=== PATIENT | female | born 1985 | race Caucasian/White ===

== ENCOUNTER 2017-06-30 04:55 | Inpatient (IN) | payer OTHER ==
[2017-06-30] MEDS ORDERED: cefOXitin Sodium 1 GM in Sodium Chloride 0.9% 100 ML IVPB ONE (05:46)
[2017-06-30 05:47] VITALS: BMI 32.9
[2017-06-30] MEDS: Lactated Ringer's 1,000 ML IV SCH ×2 (06:00→07:25)
[2017-06-30 06:53] LABS: BASO % 0.2 % (0.0-2.0); EOS # 0.1 K/uL (0.0-0.7); EOS % 0.6 % (0.0-4.0); HEMATOCRIT 34.7 % (34.0-47.0); LYMPH # 1.8 K/uL (1.0-4.3); LYMPH % 20.1 % (20.0-40.0); MEAN CELL VOLUME 92.9 fl (81.0-99.0); MEAN CORPUSCULAR HEMOGLOBIN 31.5 pg (27.0-31.0); MEAN CORPUSCULAR HGB CONC 33.9 g/dL (33.0-37.0); MEAN PLATELET VOLUME 8.5 fl (7.2-11.7); MONO # 0.8 K/uL (0.0-0.8); MONO % 8.8 % (0.0-10.0); NEUT # 6.2 K/uL (1.8-7.0); NEUT % 70.3 % (50.0-75.0); RED CELL DISTRIBUTION WIDTH 16.4 % (11.5-14.5); WHITE BLOOD COUNT 8.8 K/uL (4.8-10.8)
[2017-06-30] MEDS ORDERED: ePHEDrine 50 mg/ml Inj ONE (07:08)
[2017-06-30] MEDS ORDERED: Morphine 1 mg/ml preservative-free Inj(Duramorph) ONE (07:09)
[2017-06-30] MEDS ORDERED: Oxytocin 30 UNITS in Sodium Chloride 0.9% 500 ML IV ONE (07:30)
--- NOTE | 2017-06-30 07:55 | OBADHP ---
Datetime: 06/30/2017 07:50 IP Chief Complaint Other: previous uterine surgery IP Adm Impression Other: previous uterine surgery Admit Comment, IP Provider: GBS neg Will admit and prepare for C/S Extremities - PN: Normal Abdomen - PN: Abnormal Breast - PN: Normal Lungs - PN: Normal Heart - PN: Normal Thyroid - PN: Normal Neurologic - PN: Normal HEENT - PN: Normal General - PN: Normal FHR - Baseline A Provider: 140 Membranes, Provider: Ruptured Contraction Comments Provider: q 5 min Comments, ACOG Physical Exam: Abd gravid NT fundus at term; Ext no calf tenderness Gestation - Est Wks by US: 39.0 IP Hx Assessment: The History has been Reviewed and is Current IP Chief Complaint: Uterine contractions; Other NICHD Variability Prov Fetus A: Moderate 6-25bpm NICHD Accel Fetus A IP Provider: 10X10 NICHD Decel Fetus A IP Provider: None Dilatation, Provider: 1cm Effacement, Provider: 50% Genitourinary Exam: Normal DTRs - PN: Normal EGA AdmitDate IP: 39.3 IP Adm Impression: Term, intrauterine ; Active labor IP Admit Plan: Admit to unit; Initiate Section protocol Datetime: 06/30/2017 05:44 Pelvic Type - PN: Adequate Back - PN: Not Done Vital Signs Provider: Reviewed; Within Normal Limits FHR Category Provider Fetus A: Category I
[2017-06-30] MEDS ORDERED: Oxycodone/Acetaminophen 5/325 mg Tab PO PRN ×2 (08:47→10:23)
[2017-06-30] MEDS ORDERED: DiphenhydrAMINE 50 mg/ml Inj IVP PRN ×2 (08:47→12:53)
[2017-06-30] MEDS ORDERED: Oxytocin 30 UNITS in Sodium Chloride 0.9% 500 ML IV SCH (10:30)
[2017-06-30] MEDS ORDERED: cefOXitin IV 1 gm in Dextrose 1 GM/50 ML BAG IVPB SCH (10:30)
--- NOTE | 2017-06-30 10:35 | OBDS ---
DELIVERY PERSONNEL Delivery Doctor: Kolby Ferrera Scrub Nurse: Pilar Jones [facility]BT [employer] [facility] Practitioner: Emely Anesthesiologist: Khushi Overton MD MATERNAL INFORMATION Delivery Anesthesia: Spinal Medications in Delivery: Pitocin Estimated Blood Loss (ml): 850 Placenta Cultured: No Maternal Complications: None Provider Comments: see dictated surgeons note LABOR SUMMARY EDC: 07/04/2017 00:00 No. Babies in Womb: 1 Attempted: No Labor Anesthesia: None LABOR INFORMATION Reason for Induction: Not Applicable Oxytocin: N/A Group B Beta Strep: Negative Antibiotics # of Doses: Mefoxin 1 gram Antibiotics Time of Last Dose: 729 Steroids Given: None Reason Steroids Not Administered: Not Applicable MEMBRANES Membranes Rupture Method: Artificial Rupture of Membranes: 06/30/2017 08:35 Length of Rupture (hrs): 0.02 Amniotic Fluid Color: Bloody Amniotic Fluid Amount: Moderate Amniotic Fluid Odor: Normal STAGES OF LABOR Stage 3 hrs: 0 Stage 3 min: 1 VAGINAL DELIVERY Episiotomy: None Laceration Extension: N/A Laceration Type: None Laceration Repair: Not Applicable CSECTION DELIVERY Primary Indication: Other HX of myomectomy Secondary Indication: labor CSection Urgency: Non Elective CSection Incidence: Primary Labor: Labor Elective: Nonelective CSection Incision: Lower Uterine Transverse Uterine Closure: Double-layer closure BABY A INFORMATION Infant Delivery Date/Time: 06/30/2017 08:36 Method of Delivery: Born in Route : No : N/A Forceps: N/A Vacuum Extraction: N/A Shoulder Dystocia : No SHOULDER DYSTOCIA BABY A Infant Delivery Date/Time: 06/30/2017 08:36 PRESENTATION/POSITION BABY A Presentation: Cephalic Cephalic Presentation: Vertex Breech Presentation: N/A PLACENTA INFORMATION BABY A Placenta Delivery Time : 06/30/2017 08:37 Placenta Method of Delivery: Expressed Placenta Status: Delivered SCORES BABY A Heart Rate 1 min: >100 bpm Resp Effort 1 min: Good Cry Reflex Irritability 1 min: Cough or Sneeze or Pulls Away Muscle Tone 1 min: Active Motion Color 1 min: Body [place], Extremities Blue Resuscitation Effort 1 min: Tactile Stimulation SCORE 1 MIN: 9 Heart Rate 5 min: >100 bpm Resp Effort 5 min: Good Cry Reflex Irritability 5 min: Cough or Sneeze or Pulls Away Muscle Tone 5 min: Active Motion Color 5 min: Body [place], Extremities Blue Resuscitation Effort 5 min: N/A SCORE 5 MIN: 9 INFORMATION BABY A Gestational Age at Delivery: 39.3 Gestational Status: Term Outcome : Liveborn Condition : Stable Infant Sex: Male IDENTIFICATION/MEDS BABY A ID Band Number: [id number] ID Band Location: Left Leg; Left Arm Vitamin K Given : Not Given Erythromycin Given: Not Given WEIGHT/LENGTH BABY A Infant Birthweight (gms): 3570 Weight (lb): 7 Infant Weight (oz): 14 CORD INFORMATION BABY A No. Cord Vessels: 3 Nuchal Cord : Around Neck x1, Loose Nuchal Cord Other: n/a True Knot: n/a Cord pH Baby Arterial: n/a Infant Cord pH Baby Venous: n/a Cord Blood Taken: Yes Banking/Donate Info: n/a Infant Suction: Mouth; Nose ASSESSMENT BABY A Infant Complications: None Physical Findings at Delivery: Within Normal Limits Infant Respirations: Appears Normal Medical Planner/ALS Called : No Care By: Dr Ruiz/Mini Transferred To: [facility]
[2017-06-30] MEDS: cefOXitin IV 1 gm in Dextrose 1 GM/50 ML BAG IVPB SCH (16:40)
[2017-06-30] MEDS ORDERED: Lactated Ringer's 1,000 ML IV SCH (19:15)
[2017-06-30] MEDS: Oxycodone/Acetaminophen 5/325 mg Tab PO PRN (21:29)
[2017-07-01] MEDS: cefOXitin IV 1 gm in Dextrose 1 GM/50 ML BAG IVPB SCH (00:35)
[2017-07-01 06:53] LABS: HEMATOCRIT 32.8 % (34.0-47.0); MEAN CELL VOLUME 93.4 fl (81.0-99.0); MEAN CORPUSCULAR HEMOGLOBIN 31.4 pg (27.0-31.0); MEAN CORPUSCULAR HGB CONC 33.6 g/dL (33.0-37.0); RED CELL DISTRIBUTION WIDTH 15.9 % (11.5-14.5); WHITE BLOOD COUNT 14.5 K/uL (4.8-10.8)
[2017-07-01] MEDS: Oxycodone/Acetaminophen 5/325 mg Tab PO PRN ×3 (07:42→21:19)
--- NOTE | 2017-07-01 08:05 | OBPPN ---
Datetime: 07/01/2017 07:58 PP Pain Prov: Within normal limits PP Pain Prov comment: No SOB, chest pains or leg pains PP Nausea Prov: Denies PP Flatus Prov: Yes PP BM Prov: No PP Nausea Prov comment: voided 2x this am PP Breasts Prov: Normal PP Lungs Prov: Normal PP Abdomen/Uterus Prov: Abnormal PP Lochia Prov: Normal PP Vulva/Perineum Prov: Normal PP CVA Tenderness Prov: Normal PP Extremities Prov: Normal PP C/S Incision Prov: Normal PP Progress Prov: Normal PP Impression Prov: Normal progression PP Plan Prov: Continue present management PP Progress Note Prov: OOB and ambulation, increase diet as tolerated D/C IV after last dose of anti biotic Continue PO care Pending CBC IP PP Procedures: None
[2017-07-01] MEDS ORDERED: cefOXitin Sodium 1 GM in Sodium Chloride 0.9% 100 ML IVPB ONE (08:17)
[2017-07-01] MEDS ORDERED: cefOXitin IV 1 gm in Dextrose 1 GM/50 ML BAG IVPB ONE (09:00)
[2017-07-02] MEDS: Oxycodone/Acetaminophen 5/325 mg Tab PO PRN ×3 (02:12→20:01)
--- NOTE | 2017-07-02 09:32 | OBPPN ---
Datetime: 07/02/2017 09:28 PP Pain Prov: Within normal limits PP Pain Prov comment: No SOB, chest pains or leg pains PP Nausea Prov: Denies PP Flatus Prov: Yes PP BM Prov: No PP Breasts Prov: Normal PP Lungs Prov: Normal PP Abdomen/Uterus Prov: Abnormal PP Lochia Prov: Normal PP Vulva/Perineum Prov: Normal PP CVA Tenderness Prov: Normal PP Extremities Prov: Normal PP C/S Incision Prov: Normal PP Progress Prov: Normal PP Comments Phys Exam Prov: abd soft not distended depressible Fundus firm below the umb Dressing r emoved no active bleeding incision clean and dry, no suppt or discharge Ext no calf tenderness PP Impression Prov: Normal progression PP Plan Prov: Continue present management PP Progress Note Prov: OOB and ambulation Dulcolax suppt this pm if no bm. Continue pp and po care. IP PP Procedures: None Vital Signs Provider PP: Reviewed
--- NOTE | 2017-07-02 12:38 | OP ---
PROCEDURE DATE: 06/30/2017 PREOPERATIVE DIAGNOSES: 1. at term. 2. Previous uterine surgery. 3. Labor. POSTOPERATIVE DIAGNOSES: 1. at term. 2. Nuchal cord x1. 3. Fibroid uterus. PROCEDURE PERFORMED: Primary low transverse segment section. SURGEON: Felix Ferrera MD. MANAGER AUDIT: Balta Wu MD, who was there for the entire duration of the case. Sports Announcer needed in positioning the patient, opening up the abdomen, delivery of the baby, and closure of the abdomen. TYPE OF ANESTHESIA: Spinal. ANESTHESIA ADMINISTERED BY: Juliano Overton MD. ESTIMATED BLOOD LOSS: 850 mL. DRAINS USED: None. REPLACEMENT USED: None. FINDINGS: 1. Delivered living baby boy, baby appears term, baby cried spontaneously. score of 9 and 9. 2. Nuchal cord x1, loose, undone prior to full delivery. 3. Amniotic fluid clear. 4. Placenta complete and intact. 5. Both tubes and ovaries appear grossly within normal limits on inspection bilaterally. 6. Fibroid 2-4 cm in the posterior left side of the uterus and another one 1 m on the anterior frontal aspect. DESCRIPTION OF PROCEDURE: The patient was taken to the operating room and placed on the operating table in a supine position following induction of spinal anesthesia. The patient was then replaced in a supine position. Mistry catheter was inserted into the bladder and clear fluid was then evacuated from the bladder. The Venodyne boots were applied to both legs and the abdomen was then draped and prepped in the usual sterile manner. After testing anesthesia and found to be well secured, a Pfannenstiel incision was then made using sharp dissection two fingerbreadths above the symphysis pubis. The incision was then extended down to subcutaneous tissue, also using sharp dissection. At this time, hemostasis was obtained by means of electrocoagulation. The fascia was then identified, was then entered at the midline. The incision on the fascia was then extended laterally on each direction using sharp dissection. At this time, the rectus muscle was then identified, was then slit at the midline exposing the peritoneum. Peritoneal layer was then picked up using two Amelia clamps, retracted superiorly and then entered using sharp dissection. Incision on the peritoneum was then extended superiorly and inferiorly under direct visualization. At this time, we then proceeded to identify the bladder, which was then retracted inferiorly using the Hettick retractor. The low transverse segment of the uterus was then identified and the visceroperitoneum covering this area was then entered using sharp dissection. Using blunt dissection, a bladder flap was then created and retracted inferiorly using the same Dina retractor. Following this, we then proceeded to make an incision on the low transverse segment of the uterus. Upon entering the uterine cavity, clear fluid was noted to be present. The incision on the uterus was then extended laterally on each direction using bandage scissors. Using amnioscopy procedure, a living baby boy was then delivered. The baby appears term, the baby cried spontaneously. There was a loop of cord around the neck which was undone prior to full delivery. The baby was immediately aspirated using the bulb suction. The umbilicus was then doubly clamped, cut, and the baby handed to the pediatric personnel who was standing by. Samples of cord blood were then obtained and the placenta was then delivered complete and intact. The uterus was then exteriorized to provide better visualization. The uterine cavity was then thoroughly cleaned using moist lap pads and the uterus massaged and contracted well. At this time, we then proceeded to approximate the uterine incision using 0 Vicryl suture in a continuous interlocking manner. A second layer was also applied using 0 Vicryl suture in a continuous manner. Hemostasis was checked and found to be well secured. The bladder flap was then approximated using a 2-0 Vicryl in a continuous manner. Again, the hemostasis was checked and found to be well secured. Free amniotic fluid and blood were then evacuated from the pelvic cavity. The pelvic cavity was then irrigated using saline solution. All operative areas were checked, hemostatically secured. Both tubes and ovaries appeared grossly within normal limits to inspection bilaterally. There was a 2-4 cm posterior left fibroid and a smaller one 1 cm on the anterior frontal aspect of the uterus. At this time, the uterus was then allowed to retract back into its original position. All operative areas checked, hemostatically secured, and the peritoneum was then closed using 0 Vicryl suture in a continuous manner. Rectus muscle was also approximated at the midline using 0 Vicryl suture in a continuous manner. Fascia was then identified, was then approximated using 1 Vicryl suture in a continuous manner. Fascia was then checked and found to be free of defect. Subcutaneous tissue was then irrigated using saline solution and approximated using several interrupted 2-0 plain sutures. The skin was then approximated using a 3-0 Prolene in a subcuticular fashion. Steri-Strips were then applied. At this time, all counts of sponge, needle, and instrument were correct x3. Clear fluid noted to be present in the Mistry bag. The patient tolerated the procedure well. There were no complications. She was transferred to the recovery room in satisfactory condition. Felix Ferrera MD
[2017-07-03] MEDS: Oxycodone/Acetaminophen 5/325 mg Tab PO PRN (01:18)
--- NOTE | 2017-07-03 08:18 | OBPPN ---
Datetime: 07/03/2017 08:12 PP Pain Prov: Within normal limits PP Pain Prov comment: No SOB, chest pain or leg pain PP Nausea Prov: Denies PP Flatus Prov: Yes PP BM Prov: No PP Nausea Prov comment: No C/F PP Breasts Prov: Normal PP Lungs Prov: Normal PP Abdomen/Uterus Prov: Abnormal PP Lochia Prov: Normal PP Vulva/Perineum Prov: Normal PP CVA Tenderness Prov: Normal PP Extremities Prov: Normal PP C/S Incision Prov: Normal PP Progress Prov: Normal PP Comments Phys Exam Prov: breast not engorged NT, Abd soft not distended fundus firm below the umb . Incision clean and dry no suppt or discharge Prolene in place. Ext no calf tenderness PP Impression Prov: Normal progression PP Plan Prov: Continue present management PP Progress Note Prov: Had Dulcolax passed lots of gas but no BM Denies N/V, will give Fleets enema this am. OOB and ambulation IP PP Procedures: None Vital Signs Provider PP: Reviewed
--- NOTE | 2017-07-03 11:57 | OBDCSUM ---
Datetime: 07/03/2017 10:30 Discharged to, Provider: Home Follow up at, Provider: Dr. Ferrera Disch Instr Activity: Bedrest; May be up to bathroom; May be up for meals; May Shower Disch Instr Diet: Regular Discharge Diet restrict Prov: none Discharge Instructions, Provider: Routine instructions given Discharge Diagnosis, Provider: Term Delivered Discharge Time: 07/03/2017 11:53 Follow up in weeks, Provider: 1 week Disch Referrals: None Contraception discussed, Prov: Yes Disch Activity Restrictions: No exercising; No lifting; No driving; Minimize walking; Minimize stair -climbing; No sexual activity; Nothing in vagina - [place], tampons, douche Discharge Comment, Provider: rx or percocet given INstructions given Contraception after Delivery: Undecided
[2017-07-03 20:18] VITALS: BP 114/72; PULSE 71; RESP 20; TEMP 98.1; O2SAT 98
== END 2017-07-03 14:52 | disposition home or self-care (01) | DRG 766 ==
LOC: H.EROB2 04:55 → H.L&D 05:50 → H.OB/GYN 12:45
PROVIDERS: ADMIT Specialist; ATTEND Specialist
PROC: 10D00Z1 Extraction of Products of Conception, Low, Open Approach (ICD-10-PCS; principal; 2017-06-30)
PROC: 4A1HXCZ Monitoring of Products of Conception, Cardiac Rate, External Approach (ICD-10-PCS; 2017-06-30)
DX: O34.13 Maternal care for benign tumor of corpus uteri, third trimester (principal); D25.9 Leiomyoma of uterus, unspecified; O69.81X0 Labor and delivery complicated by cord around neck, without compression, not applicable or unspecified; Z3A.39 39 weeks gestation of pregnancy; Z37.0 Single live birth